=== PATIENT | male | born 1985 | race Two or more races ===

== ENCOUNTER → 2024-10-13 | Emergency (ER) | payer OTHER ==
[~2024-10-13] VITALS: Ht 180.3 cm; Wt 58.5 kg
[~2024-10-13] MED LIST: CEFADROXIL500 MG PO; CEFTRIAXONE SODIUM 1,000 MG VIAL IM ONE; CEFTRIAXONE SODIUM 1,000 MG VIAL ONE; DICLOFENAC SODI75 MG PO; KETOROLAC TROMETHAMINE 60 MG VIAL IM ONE; SINGULAIR5 MG
== END | disposition home or self-care (01) ==
LOC: ER 13:57
DX: L03.119 Cellulitis of unspecified part of limb (principal)

== ENCOUNTER 2024-10-16 13:56 | Inpatient (IN) | payer OTHER ==
[~2024-10-16] VITALS: Ht 180.3 cm; Wt 59.0 kg
[~2024-10-16 13:56] MED LIST changes: -CEFTRIAXONE SODIUM 1,000 MG VIAL IM ONE; -CEFTRIAXONE SODIUM 1,000 MG VIAL ONE; -KETOROLAC TROMETHAMINE 60 MG VIAL IM ONE
--- NOTE | 2024-10-16 15:13 | NUR ---
SE RECIBE PTE ALERTA Y ORIENTADO EL CUAL REFIERE VENIR POR CELULLITIS EN BRAZO LT DESDE HACE VARIOS PEREZ, PTE REFIERE ESTAR TOMANDO ANTIBIOTICOS AL MOMENTO. SE OBSERVA AREA MICA Y CALIENTE AL TACTO. SE MIDEN S/V A PTE Y SE UBICA.
[2024-10-16 16:17] LABS: BASO % 0.2 % (0.1-1.2); EOS # 0.18 (0.04-0.54); EOS % 1.3 % (0.7-7.0); LYMPH # 1.38 (1.18-3.74); LYMPH % 9.9 % (19.3-53.1); MEAN PLATELET VOLUME 9.60 fl (9.4-12.4); MONO # 1.79 (0.24-0.82); NEUT # 10.51 (1.56-6.13); NEUT % 75.4 % (34.0-71.1); RED CELL DISTRIBUTION WIDTH 12.7 % (11.6-14.4)
[2024-10-16 16:18] LABS: MONO % 12.8 % (4.7-12.5)
--- NOTE | 2024-10-16 16:18 | NUR ---
SE ORIENT A PTE SOBRE TX MEDICO EL MISMO REFIERE ENTENDER Y ACEPTAR TRATAMIENTO SE RECOLECTAN MUESTRAS DE LAB TREVIN ORDEN MEDICA BAJO MEDIDAS ASEPTICAS.
[2024-10-16 16:45] LABS: ALT/SGPT 39.0 U/L (12-78); AST/SGOT 22.0 U/L (15-37); BILIRUBIN TOTAL 1.27 mg/dL (0.3-1.2); BUN CREA RATIO 13.0 (7.0-25.0); CREATININE SERUM 0.87 mg/dL (0.70-1.30); GFR 97.69; GLOBULINA 4.0 G/DL (2.4-3.5); GLUCOSE FASTING 90.0 mg/dL (65-100); OSMOLALITY SERUM 280.0 MOSM/KG (275-295)
[2024-10-16] MEDS ORDERED: VANCOMYCIN HCL 1,000 MG VIAL IV ONE (18:30)
[2024-10-16] MEDS ORDERED: 0.9 % SODIUM CHLORIDE 1,000 ML IV ONE (18:45)
[2024-10-16] MEDS ORDERED: 0.9 % SODIUM CHLORIDE 1,000 ML IV SCH (20:00)
[2024-10-16] MEDS ORDERED: ACETAMINOPHEN 325 MG TABLET PO PRN (20:00)
[2024-10-16] MEDS ORDERED: KETOROLAC TROMETHAMINE 30 MG VIAL IU PRN (20:00)
[2024-10-16] MEDS ORDERED: VANCOMYCIN HCL 1,000 MG VIAL IV SCH (21:00)
[2024-10-16 21:21] LABS: URINE APPEARANCE Clear; URINE BILIRRUBIN Negative (NEGATIVE); URINE BLOOD Negative; URINE COLOR Yellow; URINE GLUCOSE Negative (NEGATIVE); URINE KETONE Negative (NEGATIVE); URINE LEUKOCYTE Negative; URINE NITRATE Negative; URINE PROTEIN Negative (NEGATIVE); URINE UROBILINOGEN 1.0 E.U./dl
[2024-10-16 21:26] LABS: URINE BACTERIA 1.2 uL (0.0-1933); URINE CAST 0.00 uL (0.0-1.40); URINE EPITHELIAL CELLS 0.9 uL (0.0-38.8); URINE RBC 0.8 uL (0.0-20.8); URINE WBC 0.7 uL (0.0-23.2)
[2024-10-16 23:11] VITALS: BP 113/60; O2SAT 99
[2024-10-16 23:12] VITALS: BP 113/60
[2024-10-17 05:20] VITALS: BP 108/67; O2SAT 99
[2024-10-17] MEDS ORDERED: FAMOTIDINE/PF 20 MG/2 ML VIAL IV SCH (09:00)
[2024-10-17 09:04] VITALS: BP 109/72; O2SAT 97
[2024-10-17] MEDS ORDERED: ACETAMINOPHEN 500 MG GEL..CAP PO PRN (09:15)
[2024-10-17] MEDS ORDERED: LACTOBACILLUS ACIDOPHILUS 1 CAP CAP PO SCH ×2 (13:00→17:00)
[2024-10-17 16:00] VITALS: BP 112/63; O2SAT 97
[2024-10-17] MEDS ORDERED: CHLORHEXIDINE GLUCONATE 120 ML BOTTLE TOP SCH (17:00)
[2024-10-17] MEDS ORDERED: MUPIROCIN 15 GM OINT..GM TUBE NASAL SCH (17:00)
[2024-10-17] MEDS ORDERED: VANCOMYCIN HCL 5 MG/ML REDILUIDO IV SCH (21:00)
[2024-10-18 01:37] VITALS: BP 113/72; O2SAT 100
[2024-10-18 08:00] VITALS: BP 110/68; O2SAT 98
[2024-10-18] MEDS ORDERED: CEFTRIAXONE SODIUM 2,000 MG VIAL IV STA (08:59)
[2024-10-18 17:10] VITALS: BP 116/75; BP 136/71; O2SAT 94; O2SAT 99
[2024-10-19 01:12] VITALS: BP 116/70; O2SAT 97
[2024-10-19 08:36] LABS: BASO % 0.6 % (0.1-1.2); EOS # 0.33 (0.04-0.54); EOS % 3.6 % (0.7-7.0); LYMPH # 1.61 (1.18-3.74); LYMPH % 17.7 % (19.3-53.1); MEAN PLATELET VOLUME 9.70 fl (9.4-12.4); MONO # 1.14 (0.24-0.82); NEUT # 5.92 (1.56-6.13); NEUT % 65.2 % (34.0-71.1); RED CELL DISTRIBUTION WIDTH 12.4 % (11.6-14.4)
[2024-10-19 08:43] LABS: MONO % 12.5 % (4.7-12.5)
[2024-10-19] MEDS ORDERED: CEFTRIAXONE SODIUM 2,000 MG VIAL IV SCH (09:00)
[2024-10-19 09:09] LABS: BUN CREA RATIO 12.0 (7.0-25.0); CREATININE SERUM 0.73 mg/dL (0.70-1.30); GFR 119.61; GLUCOSE FASTING 85.0 mg/dL (65-100); OSMOLALITY SERUM 285.0 MOSM/KG (275-295)
[2024-10-19] MEDS ORDERED: BISMUTH SUBSALICYLATE 524 MG/30 ML BLIST.PACK PO PRN (13:00)
[2024-10-19 14:36] VITALS: BP 112/61; O2SAT 96
[2024-10-19 19:00] VITALS: BP 119/67; O2SAT 97
[2024-10-20 01:00] VITALS: BP 110/68
[2024-10-20 09:36] VITALS: BP 119/67; O2SAT 97
[2024-10-20 18:29] VITALS: BP 104/64; O2SAT 97
[2024-10-21 01:37] VITALS: BP 121/68
[2024-10-21 08:00] VITALS: BP 112/56; O2SAT 97
[2024-10-21 16:54] VITALS: BP 114/73; O2SAT 97
[2024-10-22 03:32] VITALS: BP 117/64; O2SAT 95
[2024-10-22 10:22] VITALS: BP 119/62
== END 2024-10-22 13:32 | disposition home or self-care (01) | DRG 603 ==
LOC: ER 14:03 → SEC-K 19:51 → SURH 19:51 → MEDJ 23:49 → SURH 10-17 01:59 → MEDJ 10-19 10:07
PROVIDERS: General Practice; Preventive Medicine Public Health & General Preventive Medicine; ADMIT Internal Medicine; ATTEND Internal Medicine
PROC: BP4HZZZ Ultrasonography of Left Elbow (ICD-10-PCS; principal; 2024-10-16)
DX: L03.114 Cellulitis of left upper limb (principal); D72.829 Elevated white blood cell count, unspecified; R60.0 Localized edema; B95.61 Methicillin susceptible Staphylococcus aureus infection as the cause of diseases classified elsewhere; R19.7 Diarrhea, unspecified